=== PATIENT | male | born 1995 | race Hispanic/Latino ===

== ENCOUNTER 2019-01-28 22:24 | Observation (INO) | payer OTHER ==
[~2019-01-28] VITALS: Ht 165.1 cm; Wt 75.3 kg
[2019-01-28] MEDS ORDERED: SODIUM CHLORIDE 0.9% 1000ML 1,000 ML IV STA (22:26)
[2019-01-28] MEDS ORDERED: ALBUTEROL/IPRATROPIUM 3 ML NEB NEB ONE (22:30)
[2019-01-28] MEDS ORDERED: METHYLPREDNISOLONE SOD SUCC 125 MG/2ML VIAL IV ONE (22:30)
[2019-01-28] MEDS ORDERED: DIPHENHYDRAMINE HCL INJ 50 MG/ML VIAL IV ONE (22:30)
[2019-01-28] MEDS ORDERED: FAMOTIDINE 20 MG/2 ML VIAL IV ONE (22:30)
[2019-01-28] MEDS ORDERED: METHYLPREDNISOLONE SOD SUCC 125 MG/2ML VIAL ONE (22:38)
[2019-01-28] MEDS ORDERED: SODIUM CHLORIDE 0.9% 1000ML 1,000 ML ONE (22:39)
[2019-01-28] MEDS ORDERED: ONDANSETRON HCL INJ 2MG/ML 2ML 2 MG/ML VIAL IV ONE (22:45)
[2019-01-28] MEDS ORDERED: ALBUTEROL/IPRATROPIUM 3 ML NEB ONE (23:01)
[2019-01-28] MEDS ORDERED: PROMETHAZINE 25MG/ NS 50ML (IV) IV PRN (23:45)
[2019-01-29] VITALS (7 sets, daily range): BP systolic 108–126; BP diastolic 56–71
--- NOTE | 2019-01-29 01:15 | NUR ---
Received patient via stretcher from free standing. Patient is alert and responsive. Assisted to bed. Vital signs within normal limits. No shortness of breath noted. Oriented to room.
[2019-01-29 01:32] LABS: BASOPHILS % 0.2 % (0.0-1.0); EOSINOPHILS % 0.1 % (0.0-6.0); HEMATOCRIT 46.4 % (38.2-49.6); HEMOGLOBIN 16.5 g/dL (14.0-18.0); LYMPHOCYTES # (AUTO) 1.3 (1.0-3.2); LYMPHOCYTES % 8.7 % (18.0-39.1); MEAN CORPUSCULAR HEMOGLOBIN 31.9 pg (28-32); MEAN CORPUSCULAR HGB CONC 35.6 g/dL (31-35); MEAN CORPUSCULAR VOLUME 89.6 fL (81-99); MONOCYTES # (AUTO) 0.8 (0.2-0.8); MONOCYTES % 5.5 % (4.4-11.3); NEUTROPHILS # (AUTO) 12.2 (2.1-6.9); NEUTROPHILS % 84.9 % (38.7-80.0); PLATELET COUNT 300 x10e3/uL (140-360); RED BLOOD COUNT 5.18 x10e6/uL (4.3-5.7); RED CELL DISTRIBUTION WIDTH 13.1 % (11.7-14.4)
[2019-01-29] MEDS: LACTATED RINGER'S 1,000 ML IV SCH ×2 (01:55→09:07)
[2019-01-29 01:59] LABS: ALANINE AMINOTRANSFERASE 27 IU/L (0-55); ALBUMIN 4.6 g/dL (3.5-5.0); ALKALINE PHOSPHATASE 79 IU/L (40-150); BLOOD UREA NITROGEN 20 mg/dL (7-26); BUN/CREATININE RATIO 18 (6-25); CALCIUM 9.6 mg/dL (8.4-10.2); CARBON DIOXIDE 23 mmol/L (22-29); CHLORIDE 102 mmol/L (98-107); EST GLOMERULAR FILTRATION RATE > 60 ML/MIN (60-); GLUCOSE 94 mg/dL (74-118); SODIUM 139 mmol/L (136-145)
[2019-01-29] MEDS: DIPHENHYDRAMINE HCL INJ 50 MG/ML VIAL IV SCH ×3 (05:34→11:53)
[2019-01-29] MEDS: METHYLPREDNISOLONE SOD SUCC 40 MG/ML VIAL 1ML IV SCH ×3 (05:35→11:53)
--- NOTE | 2019-01-29 07:00 | NUR ---
bedside shift report received by night rn, pt received in stable condition, ivf infusing to r ac 18g no ss of infiltration noted, no other co vocied call light in reach will continue to monitor
[2019-01-29] MEDS: ALBUTEROL SULF 0.083% NEB SOLN 3 ML NEB NEB SCH ×2 (07:40→11:05)
[2019-01-29] MEDS ORDERED: FAMOTIDINE 20 MG/2 ML VIAL IV SCH (09:00)
--- NOTE | 2019-01-29 10:45 | NUR ---
Visit made by the Spiritual Care Department Pastoral Visitor, Keturah Ingram. PV provided pastoral presence, prayer, hospitality, and supportive listening. Pastoral Visitor informed pt/family of the scope of Consumer Attorney Services and availability. SHERRON MUSTAFA Financial Analyst Accountant Spiritual Care Department O: [phone] Pager: [phone] ([phone])
[2019-01-29] MEDS ORDERED: MEDROL DOSE PACK (12:46)
[2019-01-29] MEDS ORDERED: EPI PEN SQ (12:49)
== END 2019-01-29 13:27 | disposition home or self-care (01) ==
LOC: FSED 22:24 → ERHOLD 23:31 → MED/SURG 01-29 01:15
DX: T63.441A Toxic effect of venom of bees, accidental (unintentional), initial encounter (principal); R11.2 Nausea with vomiting, unspecified; Y92.828 Other wilderness area as the place of occurrence of the external cause
CPT/HCPCS: 36415; 80053; 85025; 94640 ×2; 99284; G0378 ×2; J1200 ×2; J2405; J2920; J2930; J7030; J7121